=== PATIENT | female | born 1980 | race Caucasian/White ===

== ENCOUNTER 2021-10-04 22:20 | Emergency (ER) | payer OTHER ==
[~2021-10-04 22:20] MED LIST: BUSPAR 10MG10 MG PO; CHANTIX1 MG PO; CLARITIN 10MG T10 MG PO; CYTOTEC 100 M100 MCG PO; DOXYCYCLINE HY100 M2 PO; FLEXERIL 10 MG10 MG PO; FLOMAX 0.4 MG0.4 MG PO; GAS RELIEF 8080 MG PO; HYDROCHLOROTHIA25 MG PO; NAPROSYN500 MG PO; NEPHROCAPS SOFTG1 MG PO; NEURONTIN 300300 MG PO; NORCO 10-325 T1 EACH PO; NORCO 5-325 TA1 EACH PO; NORCO 7.5-3251 EACH PO; OMNICEF 300 MG300 MG PO; SILENOR3 MG PO; SINGULAIR10 MG PO; SYNTHROID25 MCG PO; TIMOLOL PO; TROKENDI XR100 MG PO; TYLENOL 325MG325 MG PO; ULTRAM50 MG PO; VITAMIN D32000 UNI1 PO; WELLBUTRIN XL300 M1 PO; ZANTAC 150 MG150 MG PO; ZOFRAN ODT 4 MG4 MG SL
[2021-10-05] MEDS ORDERED: LODINE CAP 300300 MG PO (02:35)
== END 2021-10-05 03:06 | disposition home or self-care (01) ==
LOC: ER1 22:20
DX: S93.401A Sprain of unspecified ligament of right ankle, initial encounter (principal); S80.01XA Contusion of right knee, initial encounter; I10 Essential (primary) hypertension; F17.210 Nicotine dependence, cigarettes, uncomplicated; W01.0XXA Fall on same level from slipping, tripping and stumbling without subsequent striking against object, initial encounter; X50.9XXA Other and unspecified overexertion or strenuous movements or postures, initial encounter; Y92.009 Unspecified place in unspecified non-institutional (private) residence as the place of occurrence of the external cause
CPT/HCPCS: 73562; 73610; 99283

== ENCOUNTER → 2022-03-24 | Outpatient (CLI) | payer OTHER ==
[~2022-03-24] MED LIST changes: +LODINE CAP 300300 MG PO
== END ==
LOC: KOH-I 14:22
DX: S82.891A Other fracture of right lower leg, initial encounter for closed fracture (principal); M95.8 Other specified acquired deformities of musculoskeletal system
CPT/HCPCS: 73610

== ENCOUNTER → 2022-04-01 | Outpatient (CLI) | payer OTHER | LOC: KOH-I 11:15 | DX: S86.011A Strain of right Achilles tendon, initial encounter (principal) | CPT/HCPCS: 73718 ==